=== PATIENT | female | born 1985 | race Two or more races ===

== ENCOUNTER 2016-11-24 13:03 | Emergency (ER) | payer MEDICAID ==
[~2016-11-24] VITALS: Ht 154.9 cm; Wt 90.7 kg
[2016-11-24 13:10] VITALS: BP 169/100
[2016-11-24] MEDS ORDERED: cefTRIAXone SOD 1,000 MG VL IM ONE (14:00)
[2016-11-24] MEDS ORDERED: methylPREDNISolone SOD SUCC 125 MG/2 ML VL IM ONE (14:00)
== END 2016-11-24 14:28 | disposition home or self-care (01) ==
LOC: ER 13:05
DX: L03.211 Cellulitis of face (principal); K02.9 Dental caries, unspecified; Z88.8 Allergy status to other drugs, medicaments and biological substances
CPT/HCPCS: 96372; 99284; J0696; J2930